=== PATIENT | female | born 1955 | race Caucasian/White ===

== ENCOUNTER → 2019-08-18 | Outpatient (CLI) | payer BC ==
[~2019-08-18] MED LIST: ASPIRIN E.C. 8181 MG PO; GLUCOPHAGE500 MG/TAB PO; MULTIPLE VITAMI1 CAP PO; PRINIVIL10 MG PO; SYNTHROID0.125 MG/T PO; ZIAC 10/6.25M1 UDTAB PO
== END ==
LOC: MC.RAD 08:00
DX: R92.1 Mammographic calcification found on diagnostic imaging of breast (principal)

== ENCOUNTER → 2021-11-08 | Outpatient (CLI) | payer MEDICARE | LOC: MC.RAD 10:35 | DX: Z12.31 Encounter for screening mammogram for malignant neoplasm of breast (principal) ==